=== PATIENT | female | born 1950 | race Caucasian/White ===

== ENCOUNTER 2022-11-12 11:44 | Day surgery (SDC) | payer MEDICARE, MEDICAID, SELFPAY ==
--- NOTE | 2022-11-12 11:44 | W.PREOPHP ---
Assessment and Plan Assessment and plan (1) Nuclear age-related cataract, left eye: Status: Acute Assessment and plan: Assessment: Visually significant cataract of the left eye. Plan: Cataract extraction with lens implantation of the left eye, followed by the right (2) Nuclear age-related cataract, right eye: Status: Acute Assessment and plan: Assessment: Visually significant cataract of the right eye. Plan: Cataract extraction with lens implantation of the right eye (3) Primary open angle glaucoma (POAG) of left eye, mild stage: Status: Acute Assessment and plan: Assessment: Primary open-angle glaucoma, mild stage, left eye. Plan: Glaucoma stent procedure at the time of cataract surgery, left eye (4) Primary open angle glaucoma (POAG) of right eye, mild stage: Status: Acute Assessment and plan: Assessment: Primary open-angle glaucoma, mild stage, right eye. Plan: Glaucoma stent procedure at the time of cataract surgery, right eye. History of Present Illness History of Present Illness Chief Complaint: Decreased vision, both eyes. POAG, both eyes, mild stage Narrative: The patient is a 71-year-old lady with history of myopia who has worn glasses since age 7. She has noted progressive decreased vision in both eyes at both distance and near. She has significant difficulty with glare and occasional diplopia. She also has a history of primary open-angle glaucoma, mild stage, managed with 1 topical medication. On examination she is noted to have significant bilateral nuclear cataract. The option of cataract surgery was offered to the patient and she felt she was symptomatic enough that she wished to proceed. PFSH All Active Problems (Updated 11/12/22 @ 12:25 by Jean Paul Warner MD) Nuclear age-related cataract, left eye (Acute) Nuclear age-related cataract, right eye (Acute) Primary open angle glaucoma (POAG) of left eye, mild stage (Acute) Primary open angle glaucoma (POAG) of right eye, mild stage (Acute) Medical History Cataract and glaucoma syndrome Diabetic neuropathy Glaucoma Hammer toe Hearing loss History of gastric polyp HLD (hyperlipidemia) HTN (hypertension) Long-term use of high-risk medication MDD (major depressive disorder) Memory deficit Menopause Obesity Osteoarthritis SNHL (sensorineural hearing loss) Toenail deformity Type 2 diabetes mellitus Surgical History Hx of colonoscopy Hx of esophagogastroduodenoscopy Hx of shoulder surgery Hx of total knee replacement S/P skin biopsy Social History Smoking/Tobacco Use Status: Never Smoking risk assessment performed?: Yes Alcohol Intake: never Drug use: Never Substance use type: does not use Do you feel safe at home: Yes Do you feel safe in your relationship?: Yes Additional Social history: live alone Meds Allergies and Home Medications Allergies Allergy/AdvReac Type Severity Reaction Status Date / Time lisinopril Allergy Severe Other (See Unverified 11/12/22 12:07 Comment) red dye AdvReac Intermediate Nausea Unverified 11/12/22 12:07 Home Medications Medication Instructions Recorded Confirmed Type acetaminophen 500 mg tablet 500 mg PO Q8H PRN 11/08/22 11/12/22 History cetirizine 10 mg tablet 10 mg PO DAILY 11/08/22 11/12/22 History cholecalciferol (vitamin D3) 25 25 mcg PO DAILY 11/08/22 11/12/22 History mcg (1,000 unit) capsule (Vitamin D3) citalopram 40 mg tablet 40 mg PO DAILY 11/08/22 11/12/22 History fluticasone propionate 50 1 spray intranasal BID 11/08/22 11/12/22 History mcg/actuation nasal spray,suspension glipizide 5 mg tablet 5 mg PO DAILY 11/08/22 11/12/22 History latanoprost 0.005 % eye drops 1 drp ophthalmic (eye) HS 11/08/22 11/12/22 History losartan 50 mg tablet 50 mg PO DAILY 11/08/22 11/12/22 History lutein 40 mg capsule 40 mg PO DAILY 11/08/22 11/12/22 History metformin 1,000 mg tablet 1,000 mg PO BID 11/08/22 11/12/22 History multivitamin 1 tab PO DAILY 11/08/22 11/12/22 History rosuvastatin 40 mg tablet 40 mg PO DAILY 11/08/22 11/12/22 History vit C 50 mg-E 15 unit-zinc cit 4.5 1 tab PO DAILY 11/08/22 11/12/22 History mg-lutein 2.5 mg-zeaxan chew tablet (Ocuvite [facility]) Exam Eyes Other: Most recent ocular examination revealed corrected visual acuity of 20/30 in each eye. Extraocular Chelsey is normal. Intraocular pressure is 17 in each eye. Slit-lamp examination reveals dense bilateral nuclear cataract, with pupils dilating to 4 mm. Disc cupping is 0.55 OD, 0.45 OS with normal vessels, macula, peripheral retina and vitreous. Resp Auscultation: clear to auscultation bilaterally Cardio Rate: regular rate Rhythm: regular rhythm
[2022-11-12 12:18] VITALS: BP 137/59; PULSE 83; RESP 16; TEMP 36.1; O2SAT 96
--- NOTE | 2022-11-12 12:31 | ANES.PREOP_ITS ---
General Info Date of Service Date Performed: 11/12/22 Height: 5 ft 5 in Weight: 105.6 kg Body Mass Index (BMI): 38.7 Surgical Procedure: Operation Date: 11/12/22 15:40 Proposed Procedure Side Surgeon p Cataract Extraction with IOL Implant w/Glaucoma Stent Left Jean Paul Warner MD Meds Allergies and Home Medications Allergies Allergy/AdvReac Type Severity Reaction Status Date / Time lisinopril Allergy Severe Other (See Unverified 11/12/22 12:07 Comment) red dye AdvReac Intermediate Nausea Unverified 11/12/22 12:07 Home Medication Medication Instructions Recorded acetaminophen 500 mg tablet 500 mg PO Q8H PRN 11/08/22 cetirizine 10 mg tablet 10 mg PO DAILY 11/08/22 cholecalciferol (vitamin D3) 25 25 mcg PO DAILY 11/08/22 mcg (1,000 unit) capsule (Vitamin D3) citalopram 40 mg tablet 40 mg PO DAILY 11/08/22 fluticasone propionate 50 1 spray intranasal BID 11/08/22 mcg/actuation nasal spray,suspension glipizide 5 mg tablet 5 mg PO DAILY 11/08/22 latanoprost 0.005 % eye drops 1 drp ophthalmic (eye) HS 11/08/22 losartan 50 mg tablet 50 mg PO DAILY 11/08/22 lutein 40 mg capsule 40 mg PO DAILY 11/08/22 metformin 1,000 mg tablet 1,000 mg PO BID 11/08/22 multivitamin 1 tab PO DAILY 11/08/22 rosuvastatin 40 mg tablet 40 mg PO DAILY 11/08/22 vit C 50 mg-E 15 unit-zinc cit 4.5 1 tab PO DAILY 11/08/22 mg-lutein 2.5 mg-zeaxan [facility]w tablet [facility] Current Visit Medications: Current Medications Generic Name Dose Route Start Last Admin Trade Name Freq PRN Reason Stop Dose Admin Acetaminophen 1,000 mg 11/12/22 06:00 Acetaminophen 500 Mg Tab PO Q4H PRN PRN Miscellaneous Medication 0 ml 11/09/22 10:00 11/12/22 12:30 Tropicam./Phenyleph. (1/2.5%) 10 Ml Btl OS 1 drp DIRECTED SAMPSON Administration Miscellaneous Medication 0 ml 11/12/22 06:00 Prednisolone 1%, Moxifloxacin 0.5%, Nepafenac 0.1% 5ml Btl OS DIRECTED SAMPSON Tetracaine HCl 0 ml 11/12/22 06:00 Tetracaine 0.5% 4 Ml Btl OS DIRECTED [facility] PFS Active Problems Active Problems: Problem Status Onset Code Nuclear age-related cataract, left eye H25.12 Nuclear age-related cataract, right eye H25.11 Primary open angle glaucoma (POAG) of left eye, mild stage H40.1121 Primary open angle glaucoma (POAG) of right eye, mild stage H40.1111 Medical History Medical History Cataract and glaucoma syndrome Diabetic neuropathy Glaucoma Hammer toe Hearing loss History of gastric polyp HLD (hyperlipidemia) HTN (hypertension) Long-term use of high-risk medication MDD (major depressive disorder) Memory deficit Menopause Obesity Osteoarthritis SNHL (sensorineural hearing loss) Toenail deformity Type 2 diabetes mellitus Medical History Comments:: Pt. reports she was dizzy after her last procedure a couple weeks ago at [facility], pt. spoke to someone at [facility] about it and she was told it was because she lost alot of fluid from a colonoscopy Surgical History Surgical History Hx of colonoscopy Hx of esophagogastroduodenoscopy Hx of shoulder surgery Hx of total knee replacement S/P skin biopsy Tobacco Smoking/Tobacco Use Status: Never Alcohol Alcohol Intake: never Substance Use Substance use: Never Substance use type: does not use Vital Signs and Lab Results Vital Signs Most Recent Vital Signs in EMR: Most Recent Vital Signs Temp Pulse Resp BP Pulse Ox 36.1 C L 83 16 137/59 L 96 11/12/22 12:18 11/12/22 12:18 11/12/22 12:18 11/12/22 12:18 11/12/22 12:18 Point of Care Results Point of Care Results: Finger Stick Blood Glucose 182 11/12/22 11:57 Lab Results Blood Type / Crossmatch: No Data to Display Complete Blood Count: No Data to Display Complete Metabolic Panel: No Data to Display Liver Function Panel: No Data to Display Coagulation Panel: No Data to Display Cardiac Panel: No Data to Display Arterial Blood Gas: No Data to Display Venous Blood Gas: No Data to Display Pancreas Panel: No Data to Display Thyroid Panel: No Data to Display Infectious Disease: No Data to Display Blood Cultures: No Data to Display Toxicology Panel: No Data to Display Anesthesia Assessment and Plan Anesthesia History Personal History: No History of Anesthesia Complications Family History: No Family History of Anesthesia Complications Exercise Tolerance Exercise Tolerance: Metabolic Equivalents>4 Cardiac & Pulmonary Exam Cardiac Exam: Normal S1/S2 Heart Sounds Pulmonary Exam: Clear Bilateral Breath Sounds Implantable Cardiac Device Does patient have a Pacemaker or an ICD?: No Airway Exam Known Difficult Airway: No Mallampati Class: 3 Mouth Opening: Normal (> 3cm) Thyromental Distance: Less than 3 cm Neck Range of Motion: Limited ROM Neck Circumference: Thick Teeth Condition: Generalized Poor Dentition ASA Classification ASA Score: ASA 3 Emergency Case?: No NPO Status NPO Status: NPO Clears >2 hours, Solids >8 hours Anesthesia Plan Resuscitation Status: Full Code Anesthesia Technique: MAC Anesthesia Airway Planned: Natural Airway Monitors Used: Standard Monitors Preoperative Comments:: 72 yo female for cataract removal. Sig PMHx: DM2 with neuropathy (glipizide, metformin), HTN (losartan), depression, memory issues. Does not want MKO.
[2022-11-12 12:35] VITALS: BMI 38.7
[2022-11-12] MEDS: Tetracaine 0.5% 4 ML BTL OS (13:27)
[2022-11-12] MEDS: Duovisc Viscoelastic System EACH 1 EACH (13:28)
[2022-11-12] MEDS: Balanced Salt Soln.-PLUS 500 ML BAG (13:28)
[2022-11-12] MEDS: Povidone-Iodine Ophth 30 ML BTL (13:30)
[2022-11-12] MEDS: Phenylephrine/Lidocaine (15/10) MG/ML 1 ML VIAL (13:30)
[2022-11-12 14:02] VITALS: BP 134/75; PULSE 80; RESP 18; TEMP 36.3; O2SAT 96
--- NOTE | 2022-11-12 14:02 | W.PM.DSUDISC ---
Date of service: 11/12/22 Time of Service: 14:04 Discharge Plan Disposition Patient Disposition: Home Discharge Details Attending Provider: Jean Paul Warner Primary Care Provider: Steph Person Home Meds and New Rx's Prescriptions: No Action acetaminophen 500 mg Tablet 500 mg PO Q8H PRN multivitamin Tablet 1 tab PO DAILY losartan 50 mg tablet 50 mg PO DAILY Patient Comments: TAKE 1 TABLET BY MOUTH DAILY latanoprost 0.005 % drops 1 drp ophthalmic (eye) HS citalopram 40 mg tablet 40 mg PO DAILY cetirizine 10 mg tablet 10 mg PO DAILY Patient Comments: TAKE 1 TABLET BY MOUTH DAILY metformin 1,000 mg tablet 1,000 mg PO BID fluticasone propionate 50 mcg/actuation spray,suspension 1 spray INTRANASAL BID Patient Comments: SHAKE LIQUID AND USE 1 SPRAY IN EACH NOSTRIL TWICE DAILY glipizide 5 mg tablet 5 mg PO DAILY Patient Comments: TAKE 1 TABLET BY MOUTH DAILY cholecalciferol (vitamin D3) [Vitamin D3] 25 mcg (1,000 unit) Capsule 25 mcg PO DAILY rosuvastatin 40 mg tablet 40 mg PO DAILY Patient Comments: TAKE 1 TABLET BY MOUTH DAILY lutein 40 mg Capsule 40 mg PO DAILY Patient Comments: pt states she takes another brand Ocuvite [facility] 50 mg-15 unit- 4.5 mg-2.5 mg Tablet,Chewable 1 tab PO DAILY Discharge Instructions Stand Alone Forms: Post-op Topical Cataract, Maximiliano Herreraey (DSU) Discharge Orders Discharge Orders: Discharge Order (Routine); Ordered 11/12/22 Ordered By: Jean Paul Warner DS: Diagnosis Discharge Diagnosis (1) Nuclear age-related cataract, left eye: Status: Resolved (2) Primary open angle glaucoma (POAG) of left eye, mild stage: Status: Resolved
--- NOTE | 2022-11-12 14:05 | W.PM.OP ---
Date of service: 11/12/22 Time of Service: 14:05 Operative Note Operative Note DATE OF PROCEDURE: 11/12/22 PRE-OP DIAGNOSIS: Dense nuclear cataract, left eye Primary open-angle glaucoma, mild stage, left eye PROCEDURE: 1. Cataract extraction using phacoemulsification with intraocular lens implant, left eye 2. Insertion of multiple anterior segment aqueous drainage devices (Glaukos iStent inject x 2) into trabecular meshwork, left eye SURGEON: Jean Paul Warner ANESTHESIA TYPE: Local By Surgeon and MAC Refer to Anesthesia Record ESTIMATED BLOOD LOSS: 0 PATHOLOGY: none sent COMPLICATIONS: None Patient was transported to: same day Patient's condition: stable Implants: 1. Cas and Cas Vision Tecnis Eyhance DIB00 intraocular lens 2. Glaukos iStent inject trabecular micro-bypass stent x 2 Indications: 1. Progressive decreased vision due to cataract, left eye 2. Primary open angle glaucoma, left eye Procedure Description: CATARACT SURGERY OPERATIVE REPORT PREOPERATIVE DIAGNOSIS: Dense nuclear cataract, left eye Primary open-angle glaucoma, left eye, mild stage POSTOPERATIVE DIAGNOSIS: Same OPERATION: 1. Cataract extraction using phacoemulsification with posterior chamber intraocular lens implant, left eye. 2. Insertion of multiple anterior segment aqueous drainage devices (Glaukos iStent inject x 2) into trabecular meshwork, left eye IOL: IOL Public Weigher/Model: tabulate&DNA SEQ Tecnis Eyhance DIB00 IOL Power: + 18.0 diopters IOL Serial Number: [id number] Optic Diameter: 6.0mm Haptic/Overall Diameter: 13.0mm PHACO INFO: Stephen L'Usine Ã Designurion Vision System with OZil and Active Fluidics Cumulative Dispersed Energy (CDE): 30.64 seconds TRABECULAR MICRO-BYPASS STENT INFO: Glaukos iStent inject x 2 Reference Number: [id number] Serial Number: [id number] SURGEON: Jean Paul Warner MD, MARIA ISABEL ANESTHESIA: Monitored Anesthesia Care (MAC), with local sub-tenon's anesthetic infiltration COMPLICATIONS: None SPECIMENS: None INDICATIONS FOR PROCEDURE: The patient is a 72-year-old lady with history of progressive decreased vision in both eyes secondary to the development of dense bilateral nuclear cataract. She also has a history of primary open-angle glaucoma, mild stage controlled on 1 topical medication, latanoprost. The option of cataract surgery was offered to the patient and she wished to proceed. In addition, the option of glaucoma stent procedure at the time of cataract surgery was also offered to the patient and she wished to proceed with that as well. PROCEDURE: The correct surgical eye was identified and marked as the left eye and the pupil was dilated in the preoperative area using mydriatics and cycloplegics. The dilated pupil size was 6.0 mm. She elected to proceed without oral sedation.. The patient was brought to the operating room where cardiopulmonary monitoring was instituted and surgical time-out was performed, confirming the correct operative eye and IOL power. Topical anesthesia was administered and ophthalmic povidone-iodine 5% was instilled into the conjunctival fornices. Lidocaine gel was applied to the cornea and the chris-ocular area was prepped with Betadine 10% solution and draped in the usual sterile fashion for intraocular surgery, including an aperture drape. A Tegaderm transparent film dressing was cut in half and used to cover the lashes and lid margins. Care was taken to sequester the lashes and lid margins under the Tegaderm dressing. A lid speculum was placed between the lids of the operative eye and the Stephen LuxOR Revalia operating microscope was maneuvered into position. Tano scissors were then used to make a conjunctival buttonhole approximately 6mm posterior to the limbus in the inferonasal quadrant. Blunt dissection was carried out to expose bare sclera, and a blunt-tipped sub-tenon?s anesthesia cannula was introduced and passed posteriorly along the globe where non-preserved plain lidocaine was injected into posterior sub-Tenon?s space. A sideport knife was used to make a paracentesis port superior/superiortemporally. Intraocular phenylephrine/lidocaine was injected into the anterior chamber. The anterior chamber was then filled with viscoelastic. A 2.4mm keratome knife was used to create a half-thickness groove at the limbus and then to construct a three-plane near-clear corneal tunnel extending 2.0mm into clear cornea in the temporal position. . A flap was raised on the anterior capsule and capsulorhexis forceps were used to complete a continuous curvilinear capsulorhexis of 5.0 mm. Balanced salt solution was then used to perform cortical cleaving hydrodissection and nuclear hydrodelineation until the lens could be freely rotated within the capsular bag. The lens nucleus was then disassembled and removed within the capsular bag and iris plane using phacoemulsification. Cataract was noted to be quite dense. A single deep linear groove was sculpted into the central nucleus and then cracked into 2 halves. Each half was then chopped into multiple segments and removed. Additional Viscoat was used to protect the corneal endothelium due to the dense cataract. Residual cortical material was removed using the 45-degree angled silicone I/A tip with 0.3mm port. The posterior capsule was carefully polished to remove as much residual lens epithelial cells as safely possible. The capsular bag was then inflated and the anterior chamber deepened with viscoelastic. The lens implant described above was inserted into the capsular bag using the MOIRA [place] Injector. A Kuglen hook was used to dial the IOL into position. The anterior chamber was then slightly over-filled with viscoelastic. The microsope and the patient's head were tilted into the ideal position for viewing of the anterior chamber angle. Viscoelastic was placed on the cornea followed by a surgical gonionlens, and the anterior chamber angle landmarks were identified. The Bayes Impact iStent inject handpiece was introduced into the anterior chamber and the insertion sleeve was retracted once the injector was distal to the pupillary margin. The trocar was advanced through the central portion of the trabecular meshwork and into the back wall of Schlemm's canal in the superiornasal quadrant, with care taken to ensure the micro-insertion tube was perpendicular to the trabecular meshwork. The trabecular meshwork was lightly dimpled and the stent was injected without difficulty. The same procedure was then performed in the inferiornasal quradrant. Both stents were then examined and noted to be in good position within the trabecular meshwork. A moderate amount of blood reflux through the stent apertures was noted. The microscope and the patients head were returned to the normal coaxial position. Viscoelatic was then removed from the anterior chamber using the I/A handpiece. The lens implant was noted to center nicely within the capsular bag. The incisions were stromally hydrated, and the anterior chamber was reformed using BSS. Then 0.5cc of moxifloxacin 1.0mg/ml were injected into the capsular bag and anterior chamber. The incisions were checked with a Weck spear and found to be secure. Several drops of ophthalmic povidone-iodine 5% were then applied to the eye followed by two drops of Imprimis combination prednisolone/moxifloxacin/nepafenac solution. The drapes were removed and a clear plastic protective eye shield was placed over the eye. The patient was then returned to Same Day Surgery in stable condition.
--- NOTE | 2022-11-12 14:14 | W.ANESPOSTOP ---
Postoperative Evaluation Date, Time and Location Date Performed: 11/12/22 Time Performed: 14:04 Patient Location: Day Surgery Unit Vital Signs Most Recent Imported Vital Signs: Most Recent Vital Signs Temp Pulse Resp BP Pulse Ox 36.3 C L 80 18 134/75 96 11/12/22 14:02 11/12/22 14:02 11/12/22 14:02 11/12/22 14:02 11/12/22 14:02 Pain Score Most Recent Pain Score: Most Recent Pain Score Pain Level 0 11/12/22 14:02 Assessment Mental Status: Awake (Alert & Oriented to Patient Baseline) Airway and Respiratory Function: Patent airway with normal (patient baseline) respiratory exam Cardiovascular Function: Hemodynamically Stable Hydration Status: Adequately Hydrated Nausea & Vomiting: No Nausea or Vomiting Pain: Pt. Denies Any Pain Peripheral Nerve Block: Patient did not receive a nerve block
== END 2022-11-12 14:25 | disposition home or self-care (01) ==
LOC: SUR 11:45
PROVIDERS: PCP Nurse Practitioner; Visit Provider Ophthalmology
PROC: (CPT 66991; principal; 2022-11-12 15:30)
DX: H25.12 Age-related nuclear cataract, left eye (principal); H40.1121 Primary open-angle glaucoma, left eye, mild stage; I10 Essential (primary) hypertension
CPT/HCPCS: 66991; V2632; C1783

== ENCOUNTER 2022-11-23 09:26 | Day surgery (SDC) | payer MEDICARE, MEDICAID, SELFPAY ==
[2022-11-23 10:20] VITALS: BP 156/64; PULSE 85; RESP 16; TEMP 36.5; O2SAT 96
[2022-11-23] MEDS: Tropicam./Phenyleph. (1/2.5%) 5 ML BTL OD ×3 (10:29→10:42)
[2022-11-23 11:01] VITALS: BMI 14.8
--- NOTE | 2022-11-23 11:01 | W.ANESPRE ---
General Info Date of Service Date Performed: 11/23/22 Height: 8 ft 9 in Weight: 105.5 kg Body Mass Index (BMI): 14.8 Surgical Procedure: Operation Date: 11/23/22 12:40 Proposed Procedure Side Surgeon p Cataract Extraction with IOL Implant w/Glaucoma Stent Right Jean Paul Warner MD Meds Allergies and Home Medications Allergies Allergy/AdvReac Type Severity Reaction Status Date / Time lisinopril Allergy Severe Other (See Unverified 11/12/22 12:07 Comment) red dye AdvReac Intermediate Nausea Unverified 11/12/22 12:07 Home Medication Medication Instructions Recorded acetaminophen 500 mg tablet 500 mg PO Q8H PRN 11/08/22 cetirizine 10 mg tablet 10 mg PO DAILY 11/08/22 citalopram 40 mg tablet 40 mg PO DAILY 11/08/22 fluticasone propionate 50 1 spray intranasal BID 11/08/22 mcg/actuation nasal spray,suspension glipizide 5 mg tablet 5 mg PO DAILY 11/08/22 latanoprost 0.005 % eye drops 1 drp ophthalmic (eye) HS 11/08/22 losartan 50 mg tablet 50 mg PO DAILY 11/08/22 metformin 1,000 mg tablet 1,000 mg PO BID 11/08/22 multivitamin 1 tab PO DAILY 11/08/22 rosuvastatin 40 mg tablet 40 mg PO DAILY 11/08/22 vit C 50 mg-E 15 unit-zinc cit 4.5 1 tab PO DAILY 11/08/22 mg-lutein 2.5 mg-zeaxan chew tablet ([facility] Current Visit Medications: Current Medications Generic Name Dose Route Start Last Admin Trade Name Freq PRN Reason Stop Dose Admin Miscellaneous Medication 0 ml 11/23/22 06:00 11/23/22 10:42 Tropicam./Phenyleph. (1/2.5%) 5 Ml Btl OD 1 drp DIRECTED [facility] Administration Miscellaneous Medication 0 ml 11/23/22 06:00 Prednisolone 1%, Moxifloxacin 0.5%, Nepafenac 0.1% 5ml Btl OD DIRECTED [facility] Tetracaine HCl 0 ml 11/23/22 06:00 Tetracaine 0.5% 4 Ml Btl OD DIRECTED [facility] PFSH Active Problems Active Problems: Problem Status Onset Code Nuclear age-related cataract, left eye H25.12 Nuclear age-related cataract, right eye H25.11 Primary open angle glaucoma (POAG) of left eye, mild stage H40.1121 Primary open angle glaucoma (POAG) of right eye, mild stage H40.1111 Medical History Medical History Cataract and glaucoma syndrome Diabetic neuropathy Glaucoma Hammer toe Hearing loss History of gastric polyp HLD (hyperlipidemia) HTN (hypertension) Long-term use of high-risk medication MDD (major depressive disorder) Memory deficit Menopause Obesity Osteoarthritis SNHL (sensorineural hearing loss) Toenail deformity Type 2 diabetes mellitus Medical History Comments:: Pt. reports she was dizzy after her last procedure a couple weeks ago at [facility], pt. spoke to someone at [facility] about it and she was told it was because she lost alot of fluid from a colonoscopy Surgical History Surgical History Hx of colonoscopy Hx of esophagogastroduodenoscopy Hx of shoulder surgery Hx of total knee replacement S/P skin biopsy Tobacco Smoking/Tobacco Use Status: Never Alcohol Alcohol Intake: never Substance Use Substance use: Never Substance use type: does not use Vital Signs and Lab Results Vital Signs Most Recent Vital Signs in EMR: Most Recent Vital Signs Temp Pulse Resp BP Pulse Ox 36.5 C 85 16 156/64 H 96 11/23/22 10:20 11/23/22 10:20 11/23/22 10:20 11/23/22 10:20 11/23/22 10:20 Lab Results Blood Type / Crossmatch: No Data to Display Complete Blood Count: No Data to Display Complete Metabolic Panel: No Data to Display Liver Function Panel: No Data to Display Coagulation Panel: No Data to Display Cardiac Panel: No Data to Display Arterial Blood Gas: No Data to Display Venous Blood Gas: No Data to Display Pancreas Panel: No Data to Display Thyroid Panel: No Data to Display Infectious Disease: No Data to Display Blood Cultures: No Data to Display Toxicology Panel: No Data to Display Anesthesia Assessment and Plan Anesthesia History Personal History: No History of Anesthesia Complications Family History: No Family History of Anesthesia Complications Exercise Tolerance Exercise Tolerance: Metabolic Equivalents>4 Cardiac & Pulmonary Exam Cardiac Exam: Normal S1/S2 Heart Sounds Pulmonary Exam: Clear Bilateral Breath Sounds Implantable Cardiac Device Does patient have a Pacemaker or an ICD?: No Airway Exam Known Difficult Airway: No Mallampati Class: 3 Mouth Opening: Normal (> 3cm) Thyromental Distance: Less than 3 cm Neck Range of Motion: Limited ROM Neck Circumference: Thick Teeth Condition: Generalized Poor Dentition ASA Classification ASA Score: ASA 3 Emergency Case?: No NPO Status NPO Status: NPO Clears >2 hours, Solids >8 hours Anesthesia Plan Resuscitation Status: Full Code Anesthesia Technique: MAC Anesthesia Airway Planned: Natural Airway Monitors Used: Standard Monitors
[2022-11-23] MEDS: Duovisc Viscoelastic System EACH 1 EACH (12:11)
[2022-11-23] MEDS: Tetracaine 0.5% 4 ML BTL OD (12:11)
[2022-11-23] MEDS: Balanced Salt Soln.-PLUS 500 ML BAG (12:11)
[2022-11-23] MEDS: Lidocaine 1% Pres-Free 5 ML VIAL (12:12)
[2022-11-23] MEDS: Phenylephrine/Lidocaine (15/10) MG/ML 1 ML VIAL (12:13)
[2022-11-23] MEDS: Povidone-Iodine Ophth 30 ML BTL (12:14)
[2022-11-23 12:39] VITALS: BP 134/79; PULSE 85; RESP 16; TEMP 36.3; O2SAT 97
--- NOTE | 2022-11-23 12:48 | W.PM.DSUDISC ---
Date of service: 11/23/22 Time of Service: 12:48 Discharge Plan Disposition Patient Disposition: Home Discharge Details Attending Provider: Jean Paul Warner Primary Care Provider: Steph Person Home Meds and New Rx's Prescriptions: No Action acetaminophen 500 mg Tablet 500 mg PO Q8H PRN multivitamin Tablet 1 tab PO DAILY losartan 50 mg tablet 50 mg PO DAILY Patient Comments: TAKE 1 TABLET BY MOUTH DAILY latanoprost 0.005 % drops 1 drp ophthalmic (eye) HS citalopram 40 mg tablet 40 mg PO DAILY cetirizine 10 mg tablet 10 mg PO DAILY Patient Comments: TAKE 1 TABLET BY MOUTH DAILY metformin 1,000 mg tablet 1,000 mg PO BID fluticasone propionate 50 mcg/actuation spray,suspension 1 spray INTRANASAL BID Patient Comments: SHAKE LIQUID AND USE 1 SPRAY IN EACH NOSTRIL TWICE DAILY glipizide 5 mg tablet 5 mg PO DAILY Patient Comments: TAKE 1 TABLET BY MOUTH DAILY rosuvastatin 40 mg tablet 40 mg PO DAILY Patient Comments: TAKE 1 TABLET BY MOUTH DAILY [facility] 50 mg-15 unit- 4.5 mg-2.5 mg Tablet,Chewable 1 tab PO DAILY Discharge Instructions Stand Alone Forms: Post-op Topical Cataract, Maximiliano Fraser (DSU) Discharge Orders Discharge Orders: Discharge Order (Routine); Ordered 11/23/22 Ordered By: Jean Paul Warner DS: Diagnosis Discharge Diagnosis (1) Nuclear age-related cataract, right eye: Status: Resolved (2) Primary open angle glaucoma (POAG) of right eye, mild stage: Status: Chronic
--- NOTE | 2022-11-23 12:49 | ROE_ITS ---
Date of service: 11/23/22 Time of Service: 12:49 Operative Note Operative Note DATE OF PROCEDURE: 11/23/22 POST-OP DIAGNOSIS: same PROCEDURE: 1. Cataract extraction using phacoemulsification with intraocular lens implant, right eye 2. Insertion of multiple anterior segment aqueous drainage devices (Glaukos iStent inject x 2) into trabecular meshwork, right eye SURGEON: Jean Paul Warner ANESTHESIA TYPE: Local By Surgeon and MAC Refer to Anesthesia Record PATHOLOGY: none sent COMPLICATIONS: None Patient was transported to: same day Patient's condition: stable Implants: 1. [employer] / [employer] Eyhance Tecnis B00 intraocular lens 2. Glaukos iStent inject trabecular micro-bypass stent x 2 Indications: 1. Progressive decreased vision due to cataract, right eye 2. Primary open angle glaucoma, right eye Procedure Description: CATARACT SURGERY OPERATIVE REPORT PREOPERATIVE DIAGNOSIS: Nuclear cataract, right eye Primary open-angle glaucoma, right eye, mild stage POSTOPERATIVE DIAGNOSIS: Same OPERATION: 1. Cataract extraction using phacoemulsification with posterior chamber intraocular lens implant, right eye. 2. Insertion of multiple anterior segment aqueous drainage devices (Glaukos iStent inject x 2) into trabecular meshwork, right eye IOL: IOL [employer] Rec[employer]iter/Model: [employer] / MOIRA Tecnis Eyhance DIB00 IOL Power: + 17.0 diopters IOL Serial Number: [id number] Optic Diameter: 6.0mm Haptic/Overall Diameter: 13.0mm PHACO INFO: Stephen [employer] Vision System with OZil and Active Fluidics Cumulative Dispersed Energy (CDE): 19.42 seconds TRABECULAR MICRO-BYPASS STENT INFO: Glaukos iStent inject x 2 Reference Number: [id number] Serial Number: [id number] SURGEON: Jean Paul Warner MD, MARIA ISABEL ANESTHESIA: Monitored Anesthesia Care (MAC), with local sub-tenon's anesthetic infiltration COMPLICATIONS: None SPECIMENS: None INDICATIONS FOR PROCEDURE: The patient is a 72-year-old lady with history of diminished visual acuity in both eyes secondary to the development of dense bilateral nuclear cataract. She has a history of primary open-angle glaucoma in both eyes, mild stage, managed on topical latanoprost. The option of cataract surgery was offered to the patient and she wished to proceed, in addition to the option of glaucoma stent procedure. She is already undergone cataract surgery with microtrabecular bypass stent in the left eye and is doing well postoperatively, and has been able to stop her topical medications. She now presents for the same procedure in the right eye. PROCEDURE: The correct surgical eye was identified and marked as the right eye and the pupil was dilated in the preoperative area using mydriatics and cycloplegics. The dilated pupil size was 7.0 mm. The patient elected to proceed without oral sedation. The patient was brought to the operating room where cardiopulmonary monitoring was instituted and surgical time-out was performed, confirming the correct operative eye and IOL power. Topical anesthesia was administered and ophthalmic povidone-iodine 5% was instilled into the conjunctival fornices. Lidocaine gel was applied to the cornea and the chris-ocular area was prepped with Betadine 10% solution and draped in the usual sterile fashion for intraocular surgery, including an aperture drape. A Tegaderm transparent film dressing was cut in half and used to cover the lashes and lid margins. Care was taken to sequester the lashes and lid margins under the Tegaderm dressing.. Fairly significant blepharospasm, that makes A lid speculum was placed between the lids of the operative eye and the Stephen [employer] Rev[employer] operating microscope was maneuvered into position. Tano scissors were then used to make a conjunctival buttonhole approximately 6mm posterior to the limbus in the inferonasal quadrant. Blunt dissection was carried out to expose bare sclera, and a blunt-tipped sub-tenon?s anesthesia cannula was introduced and passed posteriorly along the globe where non- preserved plain lidocaine was injected into posterior sub-Tenon?s space. A sideport knife was used to make a paracentesis port inferiortemporally. Intraocular phenylephrine/lidocaine was injected into the anterior chamber. The anterior chamber was then filled with viscoelastic. A 2.4mm keratome knife was used to construct a 2-plane near-clear corneal tunnel extending 2.0mm into clear cornea superiortemporally. . A flap was raised on the anterior capsule and capsulorhexis forceps were used to complete a continuous curvilinear capsulorhexis of 5.0 mm. Balanced salt solution was then used to perform cortical cleaving hydrodissection and nuclear hydrodelineation until the lens could be freely rotated within the capsular bag. The lens nucleus was then disassembled and removed within the capsular bag and iris plane using phacoemulsification. Residual cortical material was removed using the 45-degree angled silicone I/A tip with 0.3mm port. The posterior capsule was carefully polished to remove as much residual lens epithelial cells as safely possible. The capsular bag was then inflated and the anterior chamber deepened with viscoelastic. The lens implant described above was inserted into the capsular bag using the [employer] [place] Injector. A Kuglen hook was used to dial the IOL into position. The anterior chamber was then slightly over-filled with viscoelastic. The microsope and the patient's head were tilted into the ideal position for viewing of the anterior chamber angle. Viscoelastic was placed on the cornea followed by a surgical gonionlens, and the anterior chamber angle landmarks were identified. The Purdy Aveukos iStent inject handpiece was introduced into the anterior chamber and the insertion sleeve was retracted once the injector was distal to the pupillary margin. The trocar was advanced through the central portion of the trabecular meshwork and into the back wall of Schlemm's canal in the inferonasal quadrant, with care taken to ensure the micro-insertion tube was perpendicular to the trabecular meshwork. The trabecular meshwork was lightly dimpled and the stent was injected without difficulty. The same procedure was then performed in the superiornasal quadrant. Both stents were then examined and noted to be in good position within the trabecular meshwork. A moderate amount of blood reflux was present through the stent apertures. The microscope and the patients head were returned to the normal coaxial position. Viscoelatic was then removed from the anterior chamber using the I/A handpiece. The lens implant was noted to center nicely within the capsular bag. The incisions were stromally hydrated, and the anterior chamber was reformed using BSS. Then 0.5cc of moxifloxacin 1.0mg/ml were injected into the capsular bag and anterior chamber. The incisions were checked with a Weck spear and found to be secure. Several drops of ophthalmic povidone-iodine 5% were then applied to the eye followed by two drops of Imprimis combination prednisolone/moxifloxacin/nepafenac solution. The drapes were removed and a clear plastic protective eye shield was placed over the eye. The patient was then returned to Same Day Surgery in stable condition.
--- NOTE | 2022-11-23 13:23 | W.ANESPOSTOP ---
Postoperative Evaluation Date, Time and Location Date Performed: 11/23/22 Time Performed: 12:45 Patient Location: Day Surgery Unit Vital Signs Most Recent Imported Vital Signs: Most Recent Vital Signs Temp Pulse Resp BP Pulse Ox 36.3 C L 85 16 134/79 97 11/23/22 12:39 11/23/22 12:39 11/23/22 12:39 11/23/22 12:39 11/23/22 12:39 Pain Score Most Recent Pain Score: Most Recent Pain Score Pain Level 0 11/23/22 12:39 Assessment Mental Status: Awake (Alert & Oriented to Patient Baseline) Airway and Respiratory Function: Patent airway with normal (patient baseline) respiratory exam Cardiovascular Function: Hemodynamically Stable Hydration Status: Adequately Hydrated Nausea & Vomiting: No Nausea or Vomiting Pain: Pt. Denies Any Pain Peripheral Nerve Block: Patient did not receive a nerve block
== END 2022-11-23 13:09 | disposition home or self-care (01) ==
LOC: SUR 09:27
PROVIDERS: PCP Nurse Practitioner; Visit Provider Ophthalmology
PROC: (CPT 66991; principal; 2022-11-23 12:30)
DX: H25.11 Age-related nuclear cataract, right eye (principal); H40.1111 Primary open-angle glaucoma, right eye, mild stage
CPT/HCPCS: 66991; V2632; C1783